=== PATIENT | female | born 1995 ===

== ENCOUNTER 2018-03-03 05:47 | Inpatient (IN) | payer OTHER ==
[~2018-03-03] VITALS: Ht 154.9 cm; Wt 76.4 kg
[2018-03-03] VITALS (60 sets, daily range): BP systolic 94–141; BP diastolic 45–90; PULSE 70–129; TEMP 97.9–98.8
--- NOTE | 2018-03-03 06:15 | NUR ---
Patient ambulatory to LR3, changed into gown, FHR/TOCO monitors placed and explained. Patient states that her water broke at about 0400 and she has since began to feel slight contractions and having some bloody show. 0625: SVE-4/80/-3 with clear fluid noted and amniotest positive-bloody show. Plan of care discussed. 0705: IV started in left hand, blood drawn and sent to lab, LR infusing. Consent forms gone over and signed and packet given. Questions answered. 0730: Pitocin started per protocol at [facility]Mu.
[2018-03-03] MEDS ORDERED: PRENATAL MVI (06:34)
[2018-03-03] MEDS ORDERED: EVENING PRIMRO500 MG (06:35)
[2018-03-03 07:39] LABS: BASO % 0.4 % (0.0-2.0); EOS # 0.2 (0.0-0.7); EOS % 1.8 % (0-4.0); GRAN # 5.5 (1.4-6.5); HEMOGLOBIN 11.2 g/dl (12.5-16.0); LYMPH # 1.6 (1.2-3.4); LYMPH % 19.8 % (20.0-51.0); MEAN CELL VOLUME 74 fl (80.0-100.0); MEAN CORPUSCULAR HEMOGLOBIN 25 pg (27.0-31.0); MEAN CORPUSCULAR HGB CONC 33 g/dl (33.0-37.0); MEAN PLATELET VOLUME 11.9 fl (7.4-10.4); MONO # 0.8 (0.1-0.6); MONO % 9.5 % (1.7-9.3); PLATELET COUNT 185 K/mm3 (130-400); RED BLOOD COUNT 4.58 M/mm3 (4.10-5.30); REDCELL DISTRIBUTION WIDTH-CV 16.3 % (11.5-14.5)
--- NOTE | 2018-03-03 10:55 | NUR ---
Dr. Joe at bedside to evaluate patient and FHR strip. SVE per physician-/-2 FHR showing some recurrent deep variables with contractions at this time and physician orders to keep changing positions and continue inreasing pitocin. Patient can have epidural at any time per Dr. Joe. 1100: Patient standing at edge of bed.
--- NOTE | 2018-03-03 11:10 | NUR ---
FHR difficult to trace due to maternal position on Birthing ball. FHR monitor adjusted.
--- NOTE | 2018-03-03 11:45 | NUR ---
Patient requesting epidural and [facility] [employer] called and notified. 1155: Patient sitting at edge of bed for epidural. [employer] at bedside for procedure. FHR difficult to trace due to maternal position at this time. 1203: Test dose given and patient tolerates well. 1210: Patient wedged right and becoming comfortable and will continue to monitor.
--- NOTE | 2018-03-03 12:10 | NUR ---
FHR begins to have variable decelerations. Patient wedged right at this time. 1230: FHR continues to have deep variable decerlerations with contractions. 1235: Cornell catheter placed and patient tolerates well. SVE:/-2 Patient left lateral with peanut ball between knees. Dr Joe called and notifed of deep variable decelerations and he states he will watch FHR strip at the office. Patient sits in high fowlers position. Deep variable decerlations into the 60-80bpm for 30-40seconds and returns to baseline. 1252: Patient wedged right with peanut ball.
--- NOTE | 2018-03-03 13:40 | NUR ---
FHR contiues to have deep variable decelerations. 1347: Dr. Joe notified and watching FHR strip at the office. Orders to check patient every hour.
--- NOTE | 2018-03-03 14:50 | NUR ---
FHR continues to have reccurent deep varible decelerations and at office watching FHR strip. Patient wedged right.
--- NOTE | 2018-03-03 16:00 | NUR ---
FHR continues to have variable decelerations. Patient sitting up and will continue to monitor.
--- NOTE | 2018-03-03 16:30 | NUR ---
Patient right lateral with leg up in stirrup. FHR having recurrent deep variable decelerations and Dr. Joe notified of FHR strip.
--- NOTE | 2018-03-03 16:50 | NUR ---
FHR conitinuing with deep recurrent variable decelerations into the 60-80bpms and returning to baseline. Patient sits back up, FHR still having variable decelertions into the 100bpm and returns to baseline. 1725: Patient turned left lateral with [facility]p. FHR having recurrent variable decelerations into the 70-100bpm with each contraction and returns to baseline. 1735: SVE-8-9/95/-2 with bloody show. Patient sitting up with legs lower. 1742: Dr Joe called and updated and no new orders, states he will be in, in about 20 minutes.
--- NOTE | 2018-03-03 20:00 | NUR ---
1814- Report taken from JANN Weldon. FHT with moderate variability and deep variables, deceling into the 60-90's, noted on strip. en route to hospital. 1819- at bedside. SVE /-2. explained need for section at this time due to failure to progress and FHT changes. Questions answered. 1844- Patient to OR via bed. 1944- Patient to PACU via bed. Blood-tinged urine noted. Fundus firm and D-1. 2014- Patient to PP room via bed. PP Recovery started.
[2018-03-04 03:30] VITALS: BP 107/66; PULSE 101; TEMP 98.3
[2018-03-04 08:15] VITALS: BP 105/59; PULSE 94; TEMP 98.1
[2018-03-04 12:30] VITALS: BP 117/72; PULSE 77; TEMP 97.7
[2018-03-04 17:30] VITALS: BP 107/63; PULSE 106; TEMP 97.8
[2018-03-04 20:00] VITALS: BP 120/67; PULSE 90; TEMP 98.1
--- NOTE | 2018-03-04 22:00 | NUR ---
PT HAS BEEN ENCOURAGED TO SHOWER TONITE- PREFERS TO WAIT UNTIL TOMORROW, DRESSING REMOVED BY RN. MUCH SKIN TO SKIN WITH BABY THIS AINSLEY.
[2018-03-05 07:07] VITALS: BP 116/71; PULSE 108; TEMP 98.7
[2018-03-05] MEDS ORDERED: PERCOCET 325 MG1 TA2 PO (09:03)
[2018-03-05] MEDS ORDERED: IBU600 MG PO (09:03)
[2018-03-05 17:00] VITALS: BP 131/89; PULSE 100; TEMP 97.7
[2018-03-05 19:25] VITALS: BP 120/72; PULSE 85; TEMP 98.3
[2018-03-06 07:50] VITALS: BP 115/65; PULSE 78; TEMP 98
--- NOTE | 2018-03-06 09:30 | NUR ---
Initial visit; Parents thanked [employer] for offering congratulations and God's blessings for the of their son. [employer] thanked them for choosing [facility].
== END 2018-03-06 11:35 | disposition home or self-care (01) | DRG 788 ==
LOC: OB 05:47 → LDR 05:47 → OB 09:45
PROVIDERS: ADMIT Obstetrics & Gynecology
PROC: 10D00Z1 Extraction of Products of Conception, Low, Open Approach (ICD-10-PCS; principal; 2018-03-03)
DX: O42.02 Full-term premature rupture of membranes, onset of labor within 24 hours of rupture (principal); O12.04 Gestational edema, complicating childbirth; O76 Abnormality in fetal heart rate and rhythm complicating labor and delivery; Z37.0 Single live birth; O62.0 Primary inadequate contractions; Z3A.40 40 weeks gestation of pregnancy; O99.02 Anemia complicating childbirth
CPT/HCPCS: J0690; J1885; J2270; J2405; J2590; J7120

== ENCOUNTER → 2019-12-11 | Outpatient (CLI) | payer SELFPAY ==
[~2019-12-11] MED LIST: EVENING PRIMRO500 MG; IBU600 MG PO; PERCOCET 325 MG1 TA2 PO; PRENATAL MVI
== END | disposition still patient (30) ==
LOC: ZCOL.LAB 00:03
DX: Z20.828 Contact with and (suspected) exposure to other viral communicable diseases (principal)